=== PATIENT | female | born 1955 | race Asian ===

== ENCOUNTER → 2025-04-12 15:36 | Outpatient (REF) | payer MEDICARE, SELFPAY ==
[2025-02-02 11:03] LABS: Hematocrit 38.3 % (37.0-47.0); Hemoglobin 12.8 g/dL (12.0-16.0); Mean Corp Hgb Conc. 33.4 g/dL (33.0-37.0); Mean Corpuscular Volume 80.8 fL (81.0-99.0); Platelet Count 312 10^3/uL (130-400); Red Blood Cell Count 4.74 10^6/uL (4.20-5.40); Red Cell Dist. Width 13.2 % (11.5-14.5); White Blood Cell Count 11.1 10^3/uL (4.8-10.8)
[2025-02-02 11:34] LABS: ALT (SGPT) 23 U/L (0-35); AST (SGOT) 25 U/L (14-36); Albumin 4.7 g/dl (3.5-5.0); Alkaline Phosphatase 104 U/L (38-126); Blood Urea Nitrogen 21 mg/dl (7-17); Calcium 10.2 mg/dl (8.4-10.2); Carbon Dioxide 29 mmol/L (22-30); Chloride 104 mmol/L (98-107); Glucose 134 mg/dl (70-99); HDL Cholesterol 48 mg/dl; LDL Cholesterol, Calculated 69 mg/dl; Potassium 5.4 mmol/L (3.5-5.1); Sodium 142 mmol/L (135-145); Total Bilirubin 0.4 mg/dl (0.2-1.3); Total Cholesterol 151 mg/dl (50-199); Total Protein 7.7 g/dl (6.3-8.2); Triglyceride 172 mg/dl (10-149); Very Low Density Lipoprotein 34 mg/dl (0-30); eGFR > 60.00
[2025-02-02 11:37] LABS: Absolute Neutrophils -Man Diff 4.3 10^3/uL (1.4-6.5); Atypical Lymphocytes 8 %; Band Neutrophils 0 % (0-3); Lymphocytes 45 % (20-51); Monocytes 8 % (2-9); Segmented Neutrophils 39 % (42-75)
[2025-02-02 11:38] LABS: Anisocytosis Slight; Hypochromasia 1+; Normal RBC Morphology No; Platelets Checked Yes; Polychromasia 1+
[2025-02-02 11:39] LABS: Stomatocytes 1+; Total Cells Counted 100
[2025-02-02 13:22] LABS: Glycohemoglobin (HgbA1c) 9.3 % (4.0-5.6)
[2025-02-02 14:09] VITALS: BMI 28.5
--- NOTE | 2025-02-02 14:22 | PTCARENOTE ---
Patients 02/02 A1C- 9.3- message left for Radha @ Dr. Matthew office
[2025-02-03 16:28] LABS: Lipoprotein a (Lp a) 83 mg/dL (<=29)
== END ==
LOC: REG 15:36
PROVIDERS: ATTENDING PHYSICIAN Specialist; FAMILY PHYSICIAN Family Medicine; REFERRING PHYSICIAN Student in an Organized Health Care Education/Training Program
DX: S46.011A Strain of muscle(s) and tendon(s) of the rotator cuff of right shoulder, initial encounter (principal)
CPT/HCPCS: 36415; 80053; 80061; 83036; 83695; 85025

== ENCOUNTER → 2025-05-21 10:39 | Outpatient (REF) | payer MEDICARE, SELFPAY | LOC: RCS 10:39 | PROVIDERS: ATTENDING PHYSICIAN Student in an Organized Health Care Education/Training Program; FAMILY PHYSICIAN Family Medicine | DX: I25.10 Atherosclerotic heart disease of native coronary artery without angina pectoris (principal); R06.09 Other forms of dyspnea | CPT/HCPCS: 93306 ==

== ENCOUNTER → 2025-06-10 07:57 | Outpatient (REF) | payer MEDICARE, SELFPAY | LOC: RAD 07:57 | PROVIDERS: ATTENDING PHYSICIAN Family Medicine | DX: M79.661 Pain in right lower leg (principal) | CPT/HCPCS: 93922; 93925; 93970 ==